=== PATIENT | female | born 1950 | race African-American/Black ===

== ENCOUNTER 2019-02-02 06:39 | Inpatient (IN) | payer MEDICARE, MEDICAID ==
[~2019-02-02] VITALS: Ht 170.2 cm; Wt 67.1 kg
[2019-02-02] MEDS ORDERED: SODIUM CHLORIDE 0.9% 1,000 ML IV ONE (06:47)
[2019-02-02 07:05] LABS: CHLORIDE 107 mEq/L (98-107)
[2019-02-02 07:09] LABS: ETHANOL BLOOD < 10 mg/dL; PARTIAL THROMBOPLASTIN TIME 27.5 sec (23.4-31.0)
[2019-02-02 07:10] LABS: BASOPHILS % 0.7 % (0.0-2.0); EOSINOPHILS % 1.5 % (0.0-5.0); HEMATOCRIT. 46.1 % (36.0-48.0); HEMOGLOBIN. 15.5 g/dL (12.0-16.0); LYMPHOCYTES % 42.7 % (20.0-50.0); MEAN CORPUSCULAR VOLUME 101.4 fL (81.0-99.0); MEAN PLATELET VOLUME 7.6 fl (7.4-10.4); MONOCYTES % 6.1 % (2.0-8.0); PLATELET 295 x1000/uL (130-400); RED BLOOD CELL COUNT 4.54 mill/uL (4.2-5.4); RED CELL DISTRIBUTION WIDTH 13.8 % (11.6-14.6)
[2019-02-02 07:12] LABS: LDL CHOLESTEROL 103 mg/dL (5-100)
[2019-02-02 07:13] LABS: CREATINE KINASE 135 IU/L (26-192)
[2019-02-02] MEDS ORDERED: IOHEXOL-350 100 ML BOTTLE ONE (07:28)
[2019-02-02] MEDS ORDERED: ASPIRIN 300MG SUPP PR ONE (08:15)
[2019-02-02] MEDS ORDERED: LEVETIRACETAM 1000MG/100ML 100 ML IV ONE (08:15)
[2019-02-02 09:08] LABS: CLARITY URINE CLEAR (CLEAR); COLOR URINE YELLOW (YELLOW); KETONES URINE NEGATIVE (NEGATIVE); LEUKOCYTE ESTERASE URINE 1+ (NEGATIVE); NITRITE URINE NEGATIVE (NEGATIVE); OCCULT BLOOD URINE TRACE (NEGATIVE); PROTEIN URINE NEGATIVE (NEGATIVE); SPECIFIC GRAVITY URINE 1.012 (1.005-1.030); UROBILINOGEN URINE 0.2 E.U./dL (0.2-1.0)
[2019-02-02 09:22] LABS: *AMPHETAMINES SCREEN URINE NEGATIVE (NEGATIVE); *BARBITURATES SCREEN URINE NEGATIVE (NEGATIVE); *BENZODIAZEPINES SCREEN URINE NEGATIVE (NEGATIVE); *COCAINE SCREEN URINE NEGATIVE (NEGATIVE)
[2019-02-02 09:23] LABS: CANNABINOID URINE SCREEN NEGATIVE (NEGATIVE); METHADONE URINE SCREEN NEGATIVE (NEGATIVE); OPIATES URINE SCREEN NEGATIVE (NEGATIVE); PHENCYCLIDINE URINE SCREEN NEGATIVE (NEGATIVE)
[2019-02-02] MEDS ORDERED: KCL 10MEQ/50ML PREMIX 50 ML IV ONE (09:30)
[2019-02-02] MEDS ORDERED: CEFTRIAXONE 1 G PREMIX 50 ML IV ONE (09:30)
[2019-02-02] MEDS ORDERED: ACETAMINOPHEN 325MG TABLET PO PRN ×2 (15:15→18:00)
[2019-02-02] MEDS ORDERED: ENOXAPARIN 40MG/0.4ML SYR SUBCUT SCH (16:00)
[2019-02-02 16:50] VITALS: BP 144/66
[2019-02-02 17:43] VITALS: BP 134/57
[2019-02-02] MEDS ORDERED: MAGNESIUM HYDROXIDE 400MG/5ML 30ML UDC PO PRN (18:00)
[2019-02-02] MEDS ORDERED: LORAZEPAM 2MG/ML CPJ IV PRN (18:00)
[2019-02-02] MEDS ORDERED: GUAIFENESIN 200MG/10ML SUGAR FREE UDC PO PRN (18:00)
[2019-02-02] MEDS ORDERED: CLONIDINE 0.1MG TABLET PO PRN (18:00)
[2019-02-02] MEDS ORDERED: MAGNESIUM/ALUMINUM HYDROXIDE/SIMETHICONE 30ML UDC PO PRN (18:00)
[2019-02-02] MEDS ORDERED: IPRATROPIUM/ALBUTEROL 0.5-3(2.5)MG/3ML NEB INH PRN (18:00)
[2019-02-02] MEDS ORDERED: POTASSIUM CHLORIDE 20MEQ/PACKET PO NR (18:00)
[2019-02-02] MEDS ORDERED: DIPHENHYDRAMINE 50MG/ML VIAL IV PRN (18:00)
[2019-02-02] MEDS ORDERED: ONDANSETRON HCL 4MG/2ML INJ IV PRN (18:00)
[2019-02-02 20:00] VITALS: BP 116/58
[2019-02-02] MEDS: ATORVASTATIN CALCIUM 20MG TABLET PO SCH ×2 (20:04→22:41)
[2019-02-02] MEDS ORDERED: LEVETIRACETAM 500 MG in SODIUM CHLORIDE 0.9% 100 ML IV SCH ×2 (21:00→22:45)
[2019-02-02] MEDS: SODIUM CHLORIDE 0.9% INJ 3ML FLUSH IVF SCH (21:28)
[2019-02-02] MEDS ORDERED: LEVE500T78 PO (22:35)
[2019-02-02] MEDS ORDERED: OMEG-79 PO (22:35)
[2019-02-02] MEDS ORDERED: ASPI-1158 PO (22:35)
[2019-02-02] MEDS ORDERED: LOSA100T14 PO (22:35)
[2019-02-02] MEDS ORDERED: AMLO5TAB4 PO (22:35)
[2019-02-02] MEDS: LEVETIRACETAM 500MG TABLET PO SCH (22:41)
[2019-02-03] VITALS: BP 119/60
[2019-02-03 04:00] VITALS: BP 121/61
[2019-02-03] MEDS: SODIUM CHLORIDE 0.9% INJ 3ML FLUSH IVF SCH (06:00)
[2019-02-03 08:00] VITALS: BP 124/70
[2019-02-03] MEDS ORDERED: ASPIRIN 81MG EC TABLET PO SCH (09:00)
[2019-02-03] MEDS: LEVETIRACETAM 500MG TABLET PO SCH (09:33)
== END 2019-02-03 11:15 | disposition left against medical advice (07) | DRG 64 ==
LOC: ER 06:39 → EDBEDREQ 08:09 → EDBEDREQSVC 08:09 → ENRESERV 12:07 → 7WST 13:35 → 8WST 02-03 07:59
PROVIDERS: ADMIT Internal Medicine; ATTEND Internal Medicine
DX: I63.9 Cerebral infarction, unspecified (principal); I21.4 Non-ST elevation (NSTEMI) myocardial infarction; G93.40 Encephalopathy, unspecified; Z53.21 Procedure and treatment not carried out due to patient leaving prior to being seen by health care provider; I10 Essential (primary) hypertension; I69.320 Aphasia following cerebral infarction; I69.331 Monoplegia of upper limb following cerebral infarction affecting right dominant side
CPT/HCPCS: 36415; 70496; 71045; 80051; 80061; 80305; 80320; 82550; 82962; 83721; 83735; 83880; 84443; 84484; 93005; 96361; 96365; 96366; 96367; 96368; 99291; J0696; J1953; J3480; J7030; J7050; Q9967; A4315; G0480

== ENCOUNTER 2019-06-16 12:28 | Inpatient (IN) | payer MEDICARE, MEDICAID ==
[~2019-06-16] VITALS: Ht 162.6 cm; Wt 62.6 kg
[~2019-06-16 12:28] MED LIST: AMLO5TAB4 PO; ASPI-1158 PO; LEVE500T98 PO; LOSA100T32 PO; OMEG-79 PO
[2019-06-16 12:51] LABS: BASOPHILS % 0.5 % (0.0-2.0); EOSINOPHILS % 0.4 % (0.0-5.0); HEMATOCRIT. 47.4 % (36.0-48.0); HEMOGLOBIN. 16.4 g/dL (12.0-16.0); LYMPHOCYTES % 23.3 % (20.0-50.0); MEAN CORPUSCULAR HEMOGLOBIN 34.4 pg (28.0-32.0); MEAN CORPUSCULAR VOLUME 99.5 fL (81.0-99.0); MEAN PLATELET VOLUME 7.2 fl (7.4-10.4); MONOCYTES % 5.1 % (2.0-8.0); NEUTROPHILS % 70.7 % (40.0-76.0); PLATELET 270 x1000/uL (130-400); RED BLOOD CELL COUNT 4.77 mill/uL (4.2-5.4); RED CELL DISTRIBUTION WIDTH 14.3 % (11.6-14.6)
[2019-06-16 12:58] LABS: CHLORIDE 106 mEq/L (98-107)
[2019-06-16 13:02] LABS: ETHANOL BLOOD < 10 mg/dL
[2019-06-16 13:05] LABS: LDL CHOLESTEROL 128 mg/dL (5-100)
[2019-06-16 13:20] LABS: INR 0.9; PROTHROMBIN TIME 9.6 sec (9.6-11.0)
[2019-06-16] MEDS ORDERED: IOHEXOL-350 100 ML BOTTLE ONE (13:44)
[2019-06-16 15:00] VITALS: BP 172/108
[2019-06-16] MEDS ORDERED: HYDRALAZINE 20MG/ML VIAL IV NR (15:58)
[2019-06-16] MEDS ORDERED: DEXT 5%/0.45% NACL 1000ML 1,000 ML IV SCH (16:00)
[2019-06-16] MEDS ORDERED: ONDANSETRON HCL 4MG/2ML INJ IV PRN (18:30)
[2019-06-16] MEDS ORDERED: ENOXAPARIN 40MG/0.4ML SYR SUBCUT SCH (20:00)
[2019-06-16] MEDS: LEVETIRACETAM 500MG TABLET PO SCH ×2 (21:00→21:17)
[2019-06-16] MEDS: CLOPIDOGREL 75MG TABLET PO SCH (21:17)
[2019-06-16] MEDS: THIAMINE HCL 100MG TABLET PO SCH (21:17)
[2019-06-16] MEDS: PANTOPRAZOLE 40MG DR TABLET PO SCH (21:17)
[2019-06-17] VITALS: BP 126/50
[2019-06-17 04:00] VITALS: BP 132/51
[2019-06-17 05:52] LABS: BASOPHILS % 0.5 % (0.0-2.0); HEMATOCRIT. 43.2 % (36.0-48.0); HEMOGLOBIN. 14.8 g/dL (12.0-16.0); LYMPHOCYTES % 34.8 % (20.0-50.0); MEAN CORPUSCULAR HEMOGLOBIN 34.5 pg (28.0-32.0); MEAN CORPUSCULAR VOLUME 100.7 fL (81.0-99.0); MEAN PLATELET VOLUME 7.6 fl (7.4-10.4); MONOCYTES % 8.6 % (2.0-8.0); NEUTROPHILS % 55.1 % (40.0-76.0); PLATELET 233 x1000/uL (130-400); RED BLOOD CELL COUNT 4.29 mill/uL (4.2-5.4); RED CELL DISTRIBUTION WIDTH 14.3 % (11.6-14.6)
[2019-06-17 06:24] LABS: CHLORIDE 109 mEq/L (98-107)
[2019-06-17 06:31] LABS: LDL CHOLESTEROL 120 mg/dL (5-100)
[2019-06-17] MEDS: PANTOPRAZOLE 40MG DR TABLET PO SCH (06:31)
[2019-06-17 06:33] LABS: HDL CHOLESTEROL 83 mg/dL (40-59); T4 FREE 1.02 ng/dL (0.76-1.46)
[2019-06-17 08:00] VITALS: BP 138/50
[2019-06-17] MEDS: LEVETIRACETAM 500MG TABLET PO SCH (08:56)
[2019-06-17] MEDS: CLOPIDOGREL 75MG TABLET PO SCH (08:56)
[2019-06-17] MEDS ORDERED: AMLODIPINE 5MG TABLET PO SCH (09:00)
[2019-06-17] MEDS ORDERED: ASPIRIN 81MG EC TABLET PO SCH (09:00)
[2019-06-17] MEDS: THIAMINE HCL 100MG TABLET PO SCH (09:30)
[2019-06-17 12:00] VITALS: BP 142/58
[2019-06-17] MEDS ORDERED: POTASSIUM CHLORIDE INJ 40 MEQ in DEXT 5% WATER 250 ML IV NR (12:00)
[2019-06-17] MEDS ORDERED: ACETAMINOPHEN 325MG TABLET PO PRN (14:45)
[2019-06-17] MEDS ORDERED: TRAMADOL 50MG TABLET PO PRN (14:45)
[2019-06-17] MEDS ORDERED: NICOTINE 7MG PATCH TD SCH (14:45)
[2019-06-17] MEDS ORDERED: DIPHENHYDRAMINE 50MG/ML VIAL IV PRN (14:45)
[2019-06-17] MEDS ORDERED: ACETAMINOPHEN 650MG SUPP PR PRN (14:45)
[2019-06-17] MEDS ORDERED: HYDRALAZINE 20MG/ML VIAL IV PRN (14:45)
[2019-06-17] MEDS ORDERED: ATORVASTATIN CALCIUM 20MG TABLET PO SCH (21:00)
[2019-06-17] MEDS ORDERED: LACTULOSE 20G/30ML UDC PO PRN (21:00)
[2019-06-17] MEDS ORDERED: ATORVASTATIN CALCIUM 40MG TABLET PO SCH (21:00)
[2019-06-17] MEDS ORDERED: FAMOTIDINE 20MG TABLET PO SCH (21:00)
== END 2019-06-17 13:00 | disposition left against medical advice (07) | DRG 100 ==
LOC: ER 13:11 → 7WST 13:23 → EDBEDREQSVC 13:26 → EDBEDREQ 13:26 → EDBEDREQTM 13:26 → ENRESERV 13:59
PROVIDERS: ADMIT Internal Medicine; ATTEND Internal Medicine
DX: G40.909 Epilepsy, unspecified, not intractable, without status epilepticus (principal); G92 Toxic encephalopathy; R47.01 Aphasia; E11.65 Type 2 diabetes mellitus with hyperglycemia; E78.5 Hyperlipidemia, unspecified; E87.6 Hypokalemia; F17.200 Nicotine dependence, unspecified, uncomplicated; I10 Essential (primary) hypertension; I65.09 Occlusion and stenosis of unspecified vertebral artery; Z53.21 Procedure and treatment not carried out due to patient leaving prior to being seen by health care provider; I65.21 Occlusion and stenosis of right carotid artery; Z86.73 Personal history of transient ischemic attack (TIA), and cerebral infarction without residual deficits; Z91.19 Patient's noncompliance with other medical treatment and regimen
CPT/HCPCS: 36415; 70496; 70498; 71045; 80061; 80320; 82962; 83036; 83721; 84439; 84443; 84484; 93005; 93306; 99285; J0360; J1650; J3480; J7060; Q9967; G0480